=== PATIENT | female | born 1970 | race African-American/Black ===

== ENCOUNTER 2017-02-14 00:37 | Emergency (ER) | payer BC ==
--- NOTE | 2017-02-14 01:01 | PDOC ---
History of Present Illness - General History Source: Patient Exam Limitations: No Limitations - History of Present Illness Initial Comments: 02/14/17 01:21 The patient is a 46 year old female, with a significant past medical history of asthma, who presents with a cough, chest pain, and back pain for approximately 2 days. The patient reports she initially developed a cough productive of clear sputum. After the cough, patient notes constant midsternal chest pain and mid back pain. Patient reports her chest pain is exacerbated with cough. Patient reports taking 6 steroid treatments during the past 24 hrs, with minimal relief of symptoms. She reports associated chills, but denies any fever, headache, or dizziness. She denies any diaphoresis, palpitations, shortness of breath, or lower extremity edema. She denies any abdominal pain, nausea, vomiting, diarrhea , or constipation. She reports she recently traveled to [place], but denies any sick contacts. Patients LMP was 01/17/17. Patient reports she has never been intubated for asthma exacerbation. Allergies: Penicillins Past Surgical History: None reported. Social History: Current everyday smoker. Social ETOH use. No recreational drug use. <Gregorio Worley - Last Filed: 02/14/17 01:38> <Bill Busch - Last Filed: 02/14/17 02:08> - General Stated Complaint: DIFFICULTY BREATHING Time Seen by Provider: 02/14/17 00:55 Past History <Gregorio Worley - Last Filed: 02/14/17 01:38> <Bill Busch - Last Filed: 02/14/17 02:08> - Past Medical History Allergies/Adverse Reactions: Allergies Allergy/AdvReac Type Severity Reaction Status Date / Time Penicillins Allergy Verified 02/14/17 01:20 Home Medications: Ambulatory Orders Azithromycin [Zithromax 250mg Tablets -] 250 mg PO UTDICT #6 tab 02/14/17 Prednisone [Deltasone -] 40 mg PO DAILY #10 tablet 02/14/17 Review of Systems - Review of Systems Able to Perform ROS?: Yes Comments:: 02/14/17 01:22 CONSTITUTIONAL: Yes chills. No fever, no fatigue EYES: No visual changes ENT: No ear pain, no sore throat CARDIOVASCULAR: Yes chest pain. No palpitations RESPIRATORY: Yes cough productive of clear sputum. No SOB GI: No abdominal pain, no nausea, no vomiting, no constipation, no diarrhea GENITOURINARY: No dysuria, no frequency, no hematuria MUSCULOSKELETAL: Yes back pain. No joint pain, no myalgias SKIN: No rash NEURO: No headache <Gregorio Worley - Last Filed: 02/14/17 01:38> *Physical Exam - Vital Signs Last Vital Signs Temp Pulse Resp BP Pulse Ox 98.7 F 76 16 131/78 100 02/14/17 01:20 02/14/17 01:20 02/14/17 01:20 02/14/17 01:20 02/14/17 01:20 - Physical Exam Comments: 02/14/17 01:23 CONSTITUTIONAL: Well-appearing; well-nourished; in no apparent distress HEAD: Normocephalic; atraumatic EYES: PERRL; EOM intact ENMT: External appears normal; normal oropharynx NECK: Supple; non-tender; no cervical lymphadenopathy CARD: Normal S1, S2; no murmurs, rubs, or gallops RESP: Intermittent ronchi. Bronchial breathing bilaterally. No rales ABD: Soft, non-distended; non-tender; no palpable organomegaly, no palpable hernias EXT: Normal ROM in all four extremities; non-tender to palpation; distal pulses intact SKIN: Warm, dry, no rash NEURO: No focal neurological deficiencies. <Gregorio Worley - Last Filed: 02/14/17 01:38> Heart Score/ECG Review - ECG Intrepretation Comment:: 02/14/17 01:39 Vent Rate: 74 bpm IMPRESSION: Normal sinus rhythm with sinus arrhythmia. Septal infarct. <Gregorio Worley - Last Filed: 02/14/17 01:38> Medical Decision Making - Medical Decision Making 02/14/17 02:01 Patient is a well-appearing 46-year-old female with history of asthma (no intubations in the past), who presents to the ER with cough productive of clear sputum, difficulty breathing and atraumatic, pleuritic midsternal and mid back discomfort for the past 2 days. In the ER, patient is afebrile, hemodynamically stable; physical evaluation reveals intermittent rhonchi bilaterally with bronchial breathing bilaterally. I suspect cough variant asthma with acute exacerbation likely related to acute bronchitis. EKG shows no evidence of acute ischemia or right sided heart strain. Chest x-ray reveals no evidence of infiltrate or effusion; Patient is negative for all perc criteria. I do not suspect ACS at this time. We'll administer Combivent therapy, prednisone and IM Toradol. Will discharge with prednisone and Zithromax as the patient is smoker and is likely to benefit from administration of by mouth antibiotics. <Bill Busch - Last Filed: 02/14/17 02:08> *DC/Admit/Observation/Transfer - Attestations Scribe Attestion: 02/14/17 01:23 Documentation prepared by Gregorio Worley, acting as medical office receptionist for Bill Busch MD. <Gregorio Worley - Last Filed: 02/14/17 01:38> - Attestations Physician Attestion: 02/14/17 02:00 The documentation was prepared by the scribe under my direct supervision. I have reviewed the documentation which correctly represents the findings, medical decision-making and critical action taken by me. <Bill Busch - Last Filed: 02/14/17 02:08> Diagnosis at time of Disposition: Asthma with acute exacerbation Qualifiers: Asthma severity: mild Asthma persistence: intermittent Qualified Code(s): J45.21 - Mild intermittent asthma with (acute) exacerbation; J45.21 - Mild intermittent asthma with (acute) exacerbation; J45.21 - Mild intermittent asthma with (acute) exacerbation Acute bronchitis Qualifiers: Bronchitis organism: unspecified organism Qualified Code(s): J20.9 - Acute bronchitis, unspecified; J20.9 - Acute bronchitis, unspecified - Discharge Dispostion Disposition: HOME Condition at time of disposition: Stable - Referrals Referrals: pmd, three-4 days [Other] - Patient Instructions Printed Discharge Instructions: Asthma -- Adult
[2017-02-14] MEDS ORDERED: predniSONE 20 MG TABLET (UD) PO ONE (01:13)
[2017-02-14] MEDS ORDERED: ALBUTEROL SO4 2.5/IPRATROPIUM 0.5 INH SOL 3 ML VIAL.NEB. NEB ONE ×2 (01:13→02:04)
[2017-02-14 01:21] VITALS: BP 131/78; PULSE 76; TEMP 98.7; BMI 26.2
[2017-02-14] MEDS ORDERED: KETOROLAC TROMETHAMINE 60 MG/2 ML VIAL IM ONE (01:59)
[2017-02-14] MEDS ORDERED: predniSONE 20 MG TABLET (UD) ONE (02:03)
[2017-02-14] MEDS ORDERED: predniSONE 10 MG TABLET (UD) ONE (02:03)
[2017-02-14] MEDS ORDERED: KETOROLAC TROMETHAMINE 60 MG/2 ML VIAL ONE (02:04)
--- NOTE | 2017-02-14 15:53 | EKG ---
Test Reason : Blood Pressure : / mmHG Vent. Rate : 074 BPM Atrial Rate : 074 BPM P-R Int : 162 ms QRS Dur : 090 ms QT Int : 364 ms P-R-T Axes : 066 025 040 degrees QTc Int : 404 ms NORMAL SINUS RHYTHM WITH SINUS ARRHYTHMIA RSR' IN V1-V2 NONSPECIFIC T WAVE INVERSION IN V3 ABNORMAL ECG WHEN COMPARED WITH ECG OF 25-FEB-2007 17:31, CLINICAL CORRELATION IS RECOMMENDED REPATED INDICATED Confirmed by KVNG SHINE MD ([id number]) on 02/14/2017 3:52:51 PM Referred By: Confirmed By:KVNG SHINE MD
== END 2017-02-14 02:31 | disposition home or self-care (01) ==
LOC: JER 00:37
PROC: 3E0F7GC Introduction of Other Therapeutic Substance into Respiratory Tract, Via Natural or Artificial Opening (ICD-10-PCS; principal; 2017-02-14)
PROC: 3E0233Z Introduction of Anti-inflammatory into Muscle, Percutaneous Approach (ICD-10-PCS; 2017-02-14)
DX: J45.21 Mild intermittent asthma with (acute) exacerbation (principal); J20.9 Acute bronchitis, unspecified
CPT/HCPCS: 71020-TC; 93005; 93010; 99281-25

== ENCOUNTER 2018-04-30 09:55 | Emergency (ER) | payer OTHER, BC ==
[2018-04-30 10:05] VITALS: BP 134/79; PULSE 74; TEMP 98; BMI 27.1
[2018-04-30] MEDS ORDERED: IBUPROFEN 600 MG TABLET (FP) PO ONE ×2 (10:40→10:43)
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
== END 2018-04-30 10:55 | disposition home or self-care (01) ==
LOC: JERFT 09:55
CPT/HCPCS: 99281-25